=== PATIENT | female | born 1960 | race Caucasian/White ===

== ENCOUNTER 2020-04-19 07:53 | Day surgery (SDC) | payer MEDICAID ==
[2020-04-12 10:11] LABS: ALKALINE PHOSPHATASE 105 U/L (46-116); ALT/SGPT 17 U/L (14-59); AST/SGOT 21 U/L (15-37); BILIRUBIN TOTAL 0.5 mg/dL (0.20-1.00); CALCIUM 8.1 mg/dL (8.5-10.1); CARBON DIOXIDE 28.6 mmol/L (21-32); CHLORIDE SERUM 105 mmol/L (98-107); CREATININE SERUM 0.5 mg/dL (0.6-1.0); GFR1 > 60 mL/min; GLUCOSE SERUM 107 mg/dL (74-106); POTASSIUM SERUM 3.5 mmol/L (3.5-5.1); SODIUM SERUM 141 mmol/L (136-145)
[2020-04-12 10:16] LABS: TOTAL PROTEIN, SERUM 6.1 g/dL (6.4-8.2)
[2020-04-12 10:25] LABS: BASOPHIL % 0.6 % (0.2-1.3); PLATELET COUNT 257 x10^3mcL (179-408); RED CELL DISTRIBUTION WIDTH 14.3 % (12.3-17.7)
--- NOTE | 2020-04-18 17:00 | NUR ---
COPY OF PREOP TESTING FAXED TO MD AND COPIES TO ANESTHESIA TO REVIEW.
[~2020-04-19] VITALS: Ht 160 cm; Wt 54.4 kg
[2020-04-19 08:44] VITALS: BP 121/62
[2020-04-19 17:34] VITALS: BP 139/69
== END 2020-04-19 17:10 | disposition home or self-care (01) ==
LOC: DS 07:53
PROVIDERS: ATTEND Surgery
DX: C50.912 Malignant neoplasm of unspecified site of left female breast (principal); Z20.828 Contact with and (suspected) exposure to other viral communicable diseases; F41.9 Anxiety disorder, unspecified; Z79.899 Other long term (current) drug therapy
CPT/HCPCS: 76641; 77065; 88329; 88344; 88361; J0690; J1170; J2001; J3010; J3490; Q9968; U0003